=== PATIENT | male | born 1990 | race Caucasian/White ===

== ENCOUNTER 2016-04-09 03:16 | Emergency (ER) | payer SELFPAY ==
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
[2016-04-09] MEDS ORDERED: HYDROCODONE/ACETAMINOPHEN 5-325 MG 6 TAB/DSPK PO PRN (05:01)
[2016-04-09] MEDS ORDERED: HYDROCODONE/ACETAMINOPHEN 5-325 MG TABLET PO ONE (05:01)
[2016-04-09 06:02] VITALS: BP 123/56
== END 2016-04-09 05:20 | disposition home or self-care (01) ==
LOC: ER 03:16
DX: M25.561 Pain in right knee (principal); W10.9XXA Fall (on) (from) unspecified stairs and steps, initial encounter; Y99.0 Civilian activity done for income or pay; M79.5 Residual foreign body in soft tissue; F17.210 Nicotine dependence, cigarettes, uncomplicated
CPT/HCPCS: 99283